=== PATIENT | female | born 2000 | race Caucasian/White ===

== ENCOUNTER 2023-09-08 13:05 | Emergency (ER) | payer BC ==
[~2023-09-08] VITALS: Ht 162.5 cm; Wt 59.0 kg
[2023-09-08] MEDS ORDERED: MG-AL HYDROXIDE/SIMETICONE 30 ML UDC PO STA (14:30)
[2023-09-08] MEDS ORDERED: Dicyclomine Hydrochloride 20 MG/10 ML OSYR PO STA (14:30)
[2023-09-08] MEDS ORDERED: Lidocaine Hydrochloride 15 ML UDC PO STA (14:30)
[2023-09-08] MEDS ORDERED: OMEPRAZOLE40 MG PO (15:30)
== END 2023-09-08 15:41 | disposition home or self-care (01) ==
LOC: ED 13:05
DX: K21.9 Gastro-esophageal reflux disease without esophagitis (principal)